=== PATIENT | female | born 1955 | race Native Hawaiian/Other Pacific Islander ===

== ENCOUNTER 2020-07-03 00:18 | Emergency (ER) | payer OTHER ==
[~2020-07-03] VITALS: Ht 172.7 cm; Wt 69.9 kg
[2020-07-03 00:58] LABS: PLATELET COUNT 327 K/uL (152-353)
[2020-07-03 01:02] LABS: POTASSIUM 3.9 mmol/L (3.6-5.2)
[2020-07-03 04:58] VITALS: BP 127/88; TEMP 98.5
[2020-07-03] MEDS ORDERED: ALEN70TA19 PO (05:23)
[2020-07-03] MEDS ORDERED: LIPITOR20 MG PO (05:24)
[2020-07-03] MEDS ORDERED: CARV25TA PO (05:25)
[2020-07-03] MEDS ORDERED: MYCOPHENOLAT500 MG PO (05:29)
[2020-07-03] MEDS ORDERED: FURO20TA67 PO (05:30)
[2020-07-03] MEDS ORDERED: ACET-206 PO (05:39)
== END 2020-07-03 04:59 | disposition other institution (70) ==
LOC: ED 00:18
PROVIDERS: Emergency Medicine
DX: F28 Other psychotic disorder not due to a substance or known physiological condition (principal); Z11.59 Encounter for screening for other viral diseases; I71.2 Thoracic aortic aneurysm, without rupture; Z04.6 Encounter for general psychiatric examination, requested by authority
CPT/HCPCS: 36415; 80053; 85027; 87635; 93005; 99285; Q9963; U0003